=== PATIENT | male | born 1945 | race Hispanic/Latino ===

== ENCOUNTER → 2020-01-19 | Outpatient (CLI) | payer OTHER, MEDICARE | END | disposition home or self-care (01) | LOC: RAH 07:50 | PROVIDERS: ATTEND Surgery | DX: K74.60 Unspecified cirrhosis of liver (principal) | CPT/HCPCS: 76705 ==

== ENCOUNTER 2021-03-29 18:49 | Observation (INO) | payer OTHER, MEDICARE ==
[~2021-03-29] VITALS: Ht 162.6 cm; Wt 44.9 kg
[~2021-03-29 18:49] MED LIST: DEXA6TAB7 PO; LEVO100T4 PO; METO10TA41 PO; MIDO5TAB4 PO; ONDA4TAB4 SL; PANT40TA55 PO
[2021-03-29 19:10] VITALS: BP 95/52
[2021-03-29 20:39] LABS: EOSINOPHILS % (AUTO) 0.3 % (0.0-8.0); LYMPHOCYTES % (AUTO) 24.8 % (21.0-51.0); MEAN CORPUSCULAR VOLUME 83.3 fL (79-99); MONOCYTES % (AUTO) 13.1 % (3.0-13.0); NEUTROPHILS % (AUTO) 61.2 % (40.0-77.0); PLATELET COUNT (AUTO) 211 K/uL (130-400); RED BLOOD CELL COUNT(AUTO) 1.92 MIL/uL (4.50-6.20); RED CELL DISTRIBUTION WIDTH 19.8 % (11.0-15.5); WHITE BLOOD COUNT (AUTO) 3.5 K/uL (4.8-10.8)
[2021-03-29 20:54] LABS: CREATININE 0.8 mg/dL (0.5-1.5); INR 1.05 (0.85-1.15); POTASSIUM 3.8 mmol/L (3.5-5.1); PROTHROMBIN TIME 11.4 SEC (9.6-11.6)
[2021-03-29 20:59] LABS: ALBUMIN 2.5 g/dL (3.5-5.0); BILIRUBIN,TOTAL 0.3 mg/dL (0.2-1.0); TOTAL PROTEIN, SERUM 4.7 g/dL (6.0-8.3)
[2021-03-29 21:22] LABS: APPEARANCE,URINE Clear (CLEAR); BILIRUBIN,URINE Negative (NEGATIVE); COLOR,URINE Yellow (YELLOW); GLUCOSE, URINE (UA) Negative (NEGATIVE); KETONES,URINE Negative (NEGATIVE); LEUKOCYTE ESTERASE ,URINE Negative (NEGATIVE); NITRATE,URINE Negative (NEGATIVE); OCCULT BLOOD,URINE Negative (NEGATIVE); PH,URINE 7.5 (5.0-8.0); PROTEIN,URINE Negative (NEGATIVE)
[2021-03-29] MEDS ORDERED: PANTOPRAZOLE 40 MG/VIAL IVP STA (22:05)
[2021-03-29] MEDS ORDERED: DEXTROSE 50%-WATER 50 ML DISP.SYRIN IV PRN (22:30)
[2021-03-29] MEDS ORDERED: GLUCAGON 1MG KIT 1 MG ML IM PRN (22:30)
[2021-03-29] MEDS ORDERED: LABETALOL 20MG VIAL IV PRN (22:30)
[2021-03-29 22:40] VITALS: BP 82/50
[2021-03-30] MEDS ORDERED: NITROGLYCERIN 0.4 MG SL TAB SL PRN (01:30)
[2021-03-30] MEDS ORDERED: ACETAMINOPHEN 325 MG TAB PO PRN ×2 (01:30)
[2021-03-30] MEDS ORDERED: MAG/ALUM/SIMETH 30 ML UDCUP PO PRN (01:30)
[2021-03-30] MEDS ORDERED: 0.9%NACL 1000ML 1,000 ML IV SCH (01:30)
[2021-03-30] MEDS ORDERED: ZOLPIDEM TARTRATE 5 MG TAB PO ONE (01:30)
[2021-03-30] MEDS ORDERED: GUAIFENESIN-DM 200/20 MG 10 ML PO PRN (01:30)
[2021-03-30] MEDS ORDERED: ONDANSETRON 4MG INJ IV PRN (01:30)
[2021-03-30] MEDS ORDERED: MORPHINE 4 MG SYG IV PRN (01:30)
[2021-03-30] MEDS ORDERED: LACTULOSE 20 GM/30 ML UDCUP PO PRN (01:30)
[2021-03-30 02:15] VITALS: BP 86/53
[2021-03-30] MEDS ORDERED: PANT40TA54 PO (03:13)
[2021-03-30] MEDS ORDERED: MIDO5TAB4 PO (03:13)
[2021-03-30] MEDS ORDERED: METO5TAB2 PO (03:13)
[2021-03-30] MEDS ORDERED: SUCR1ORA15 PO (03:13)
[2021-03-30] MEDS ORDERED: LEVO100C4 PO (03:13)
[2021-03-30 05:11] VITALS: BP 105/63
[2021-03-30] MEDS: INSULIN HUMULIN R 100 UNIT/ML 3ML SQ SCH ×3 (05:46→11:46)
[2021-03-30 06:22] VITALS: BP 102/56
[2021-03-30] MEDS ORDERED: LEVOTHYROXINE 50 MCG TABLET PO SCH (06:30)
[2021-03-30 07:28] LABS: EOSINOPHILS % (AUTO) 0.4 % (0.0-8.0); HEMATOCRIT 25.9 % (42-54); LYMPHOCYTES % (AUTO) 25.1 % (21.0-51.0); MEAN CORPUSCULAR HEMOGLOBIN 26.4 pg (27.0-33.0); MEAN CORPUSCULAR VOLUME 82.5 fL (79-99); MONOCYTES % (AUTO) 14.5 % (3.0-13.0); NEUTROPHILS % (AUTO) 59.1 % (40.0-77.0); PLATELET COUNT (AUTO) 181 K/uL (130-400); RED BLOOD CELL COUNT(AUTO) 3.14 MIL/uL (4.50-6.20); RED CELL DISTRIBUTION WIDTH 16.8 % (11.0-15.5); WHITE BLOOD COUNT (AUTO) 2.4 K/uL (4.8-10.8)
[2021-03-30 07:55] LABS: B-TYPE NATRIURETIC PEPTIDE 43 pg/mL (0-100)
[2021-03-30 08:00] LABS: CREATININE 0.7 mg/dL (0.5-1.5); MAGNESIUM 1.9 mg/dL (1.80-2.40); POTASSIUM 3.6 mmol/L (3.5-5.1); THYROID STIMULATING HORMONE 2.22 uIU/mL (0.36-3.74)
[2021-03-30 08:14] VITALS: BP 104/65
[2021-03-30 09:00] LABS: BASOPHILS % (MANUAL) 4 % (0-2); LYMPHOCYTES % (MANUAL) 40 % (22-44); MONOCYTES % (MANUAL) 20 % (2-9); SEGMENTED NEUTROPHILS % 36 % (40-70)
[2021-03-30] MEDS ORDERED: MIDODRINE HCL 5 MG TABLET PO SCH (09:00)
[2021-03-30] MEDS ORDERED: NON-FORMULARY MEDICATION 1 EACH (Levothyroxine Sodium (Levothyroxine) 100 MCG) PO SCH (09:00)
[2021-03-30] MEDS ORDERED: SUCRALFATE 1 GM TABLET PO SCH (09:00)
[2021-03-30] MEDS ORDERED: FERROUS SULFATE 325 MG TABLET.DR PO SCH (09:00)
[2021-03-30 09:01] LABS: PLATELET MORPHOLOGY COMMENT ADEQUATE
[2021-03-30 12:32] LABS: BASOPHILS % (AUTO) 0.4 % (0.0-5.0); EOSINOPHILS % (AUTO) 0.4 % (0.0-8.0); HEMATOCRIT 26.5 % (42-54); LYMPHOCYTES % (AUTO) 31.2 % (21.0-51.0); MEAN CORPUSCULAR HEMOGLOBIN 26.9 pg (27.0-33.0); MEAN CORPUSCULAR HGB CONC 32.8 g/dL (32.0-36.0); MEAN CORPUSCULAR VOLUME 81.8 fL (79-99); MONOCYTES % (AUTO) 14.3 % (3.0-13.0); PLATELET COUNT (AUTO) 188 K/uL (130-400); RED BLOOD CELL COUNT(AUTO) 3.24 MIL/uL (4.50-6.20); RED CELL DISTRIBUTION WIDTH 16.7 % (11.0-15.5); WHITE BLOOD COUNT (AUTO) 2.4 K/uL (4.8-10.8)
[2021-03-30 14:21] VITALS: BP 126/63
[2021-03-31] MEDS ORDERED: LEVOTHYROXINE 100 MCG TABLET PO SCH (06:30)
== END 2021-03-30 14:49 | disposition home or self-care (01) ==
LOC: EDH 18:49 → EDHIP 22:03
PROVIDERS: ADMIT Internal Medicine Pulmonary Disease; ATTEND Internal Medicine Pulmonary Disease
DX: K92.2 Gastrointestinal hemorrhage, unspecified (principal); D64.9 Anemia, unspecified; C85.90 Non-Hodgkin lymphoma, unspecified, unspecified site; E03.9 Hypothyroidism, unspecified; G62.9 Polyneuropathy, unspecified; R53.81 Other malaise; I95.9 Hypotension, unspecified; Z66 Do not resuscitate; Z85.850 Personal history of malignant neoplasm of thyroid; Z92.21 Personal history of antineoplastic chemotherapy
CPT/HCPCS: 36415 ×2; 36430 ×2; 71045; 80048; 80053; 81003; 82270; 82948 ×3; 83735; 83880; 84443; 84484; 85025 ×3; 85610; 86850; 86900; 86901; 86923 ×2; 93005; 96361; 96374; 99285; C9113; G0378 ×11; P9016 ×2; J7030

== ENCOUNTER 2021-07-16 05:55 | Day surgery (SDC) | payer OTHER, MEDICARE ==
[~2021-07-16] VITALS: Ht 167.6 cm; Wt 49.0 kg
[~2021-07-16 05:55] MED LIST changes: -DEXA6TAB7 PO; +FOLI1 PO; +LEVO100C4 PO; +METO5 PO; -ONDA4TAB4 SL; +PANT40TA54 PO; +POLY119P3 PO; +SUCR1ORA15 PO
[2021-07-16] MEDS ORDERED: 0.9%NACL 1000ML 1,000 ML IV ONE (06:22)
[2021-07-16 06:40] VITALS: BP 100/42
[2021-07-16] MEDS ORDERED: FAMO20TA8 PO (06:58)
[2021-07-16] MEDS ORDERED: PROPOFOL 10 MG/ML 20ML VIAL IV ONE (07:37)
[2021-07-16 08:00] VITALS: BP 66/29
[2021-07-16 08:05] VITALS: BP 74/39
[2021-07-16 08:10] VITALS: BP 81/38
[2021-07-16 08:26] VITALS: BP 82/49
== END 2021-07-16 08:32 | disposition home or self-care (01) ==
LOC: DAH 05:55 → ENDO 05:55
PROVIDERS: ATTEND Internal Medicine
DX: R13.10 Dysphagia, unspecified (principal); K22.2 Esophageal obstruction; D64.9 Anemia, unspecified; K29.51 Unspecified chronic gastritis with bleeding; Z86.010 Personal history of colon polyps; E03.9 Hypothyroidism, unspecified; K25.4 Chronic or unspecified gastric ulcer with hemorrhage; R63.4 Abnormal weight loss; K31.1 Adult hypertrophic pyloric stenosis; K59.00 Constipation, unspecified; C85.10 Unspecified B-cell lymphoma, unspecified site; Z79.899 Other long term (current) drug therapy; Z20.822 Contact with and (suspected) exposure to COVID-19
CPT/HCPCS: 43249; 87635; 93005; A4215 ×2; A4221; A4222; A4223; A4600; A4606; A4620; A4663; C9803; J2704; J7030

== ENCOUNTER → 2022-06-11 | Outpatient (CLI) | payer OTHER, MEDICARE ==
[~2022-06-11] MED LIST changes: +FAMO20TA8 PO; -LEVO100T4 PO; -PANT40TA55 PO
== END | disposition home or self-care (01) ==
LOC: RAH 08:06
PROVIDERS: ATTEND Internal Medicine Gastroenterology
DX: R10.13 Epigastric pain (principal)
CPT/HCPCS: 74240; 76700

== ENCOUNTER 2022-07-16 18:01 | Emergency (ER) | payer OTHER, MEDICARE ==
[~2022-07-16] VITALS: Ht 165.1 cm; Wt 56.7 kg
[2022-07-16 18:32] LABS: BASOPHILS % (AUTO) 0.2 % (0.0-5.0); EOSINOPHILS % (AUTO) 0.1 % (0.0-8.0); HEMATOCRIT 34.5 % (42-54); LYMPHOCYTES % (AUTO) 10.2 % (21.0-51.0); MEAN CORPUSCULAR HEMOGLOBIN 29.8 pg (27.0-33.0); MEAN CORPUSCULAR HGB CONC 33.9 g/dL (32.0-36.0); MEAN CORPUSCULAR VOLUME 87.8 fL (79-99); MONOCYTES % (AUTO) 7.6 % (3.0-13.0); NEUTROPHILS % (AUTO) 81.7 % (40.0-77.0); PLATELET COUNT (AUTO) 185 K/uL (130-400); RED BLOOD CELL COUNT(AUTO) 3.93 MIL/uL (4.50-6.20); RED CELL DISTRIBUTION WIDTH 14.5 % (11.0-15.5)
[2022-07-16] MEDS ORDERED: PANTOPRAZOLE 40 MG/VIAL IVP STA (18:38)
[2022-07-16 18:40] LABS: CREATININE 1.3 mg/dL (0.5-1.5)
[2022-07-16 18:49] LABS: ALBUMIN 4.1 g/dL (3.5-5.0); TOTAL PROTEIN, SERUM 7.9 g/dL (6.0-8.3)
[2022-07-16 21:27] LABS: OCCULT BLOOD,GASTRIC FLUID NEGATIVE (NEGATIVE)
[2022-07-16] MEDS ORDERED: OMEP40CA21 PO (21:32)
[2022-07-16 22:00] VITALS: BP 116/63
== END 2022-07-16 22:13 | disposition home or self-care (01) ==
LOC: EDH 18:01
DX: K92.0 Hematemesis (principal); K21.9 Gastro-esophageal reflux disease without esophagitis; K30 Functional dyspepsia; I10 Essential (primary) hypertension; E05.90 Thyrotoxicosis, unspecified without thyrotoxic crisis or storm; Z79.899 Other long term (current) drug therapy
CPT/HCPCS: 99285; 74176; 96374; 71045; 84484; 80053; 83690; 85025; 82272; 82271; 36415; 93005; C9113; 82270

== ENCOUNTER 2023-05-28 09:18 | Emergency (ER) | payer OTHER, MEDICARE ==
[~2023-05-28] VITALS: Ht 157.5 cm; Wt 63.0 kg
[~2023-05-28 09:18] MED LIST changes: +OMEP40CA21 PO
[2023-05-28 09:54] LABS: BASOPHILS # (AUTO) 0.04 K/uL (0.00-0.20); BASOPHILS % (AUTO) 0.4 % (0.0-5.0); EOSINOPHILS # (AUTO) 0.04 K/uL (0.00-0.70); EOSINOPHILS % (AUTO) 0.4 % (0.0-8.0); HEMATOCRIT 38.8 % (42-54); IMMATURE GRANULOCYTE ABSOLUTE 0.11 K/uL (0-1); LYMPHOCYTES # (AUTO) 2.2 K/uL (1.0-4.8); LYMPHOCYTES % (AUTO) 20.7 % (21.0-51.0); MEAN CORPUSCULAR HEMOGLOBIN 30.4 pg (27.0-33.0); MEAN CORPUSCULAR HGB CONC 34.3 g/dL (32.0-36.0); MEAN CORPUSCULAR VOLUME 88.6 fL (79-99); MONOCYTES # (AUTO) 0.8 K/uL (0.1-1.0); MONOCYTES % (AUTO) 7.6 % (3.0-13.0); NEUTROPHILS # (AUTO) 7.3 K/uL (1.8-7.7); NEUTROPHILS % (AUTO) 69.8 % (40.0-77.0); PLATELET COUNT (AUTO) 305 K/uL (130-400); RED BLOOD CELL COUNT(AUTO) 4.38 MIL/uL (4.50-6.20); RED CELL DISTRIBUTION WIDTH 14.4 % (11.0-15.5); WHITE BLOOD COUNT (AUTO) 10.5 K/uL (4.8-10.8)
[2023-05-28 10:14] LABS: CREATININE 1.6 mg/dL (0.5-1.5); POTASSIUM 3.8 mmol/L (3.5-5.1)
[2023-05-28 10:21] LABS: SARS-CoV-2, RNA, NAAT NEGATIVE SARS CoV-2 (NEGATIVE)
[2023-05-28 10:31] LABS: INFLUENZA TYPE A Negative For Type A (NEGATIVE); INFLUENZA TYPE B Negative For Type B (NEGATIVE)
[2023-05-28] MEDS ORDERED: MORPHINE 4 MG SYG IM ONE (11:00)
[2023-05-28] MEDS ORDERED: ONDANSETRON 4MG INJ IVP ONE (11:00)
[2023-05-28 12:24] VITALS: BP 104/71; PULSE 90; RESP 18; O2SAT 98
[2023-05-28] MEDS ORDERED: LIDO700A30 TP (12:26)
== END 2023-05-28 12:41 | disposition home or self-care (01) ==
LOC: EDH 09:18
DX: B02.29 Other postherpetic nervous system involvement (principal); I10 Essential (primary) hypertension; E03.9 Hypothyroidism, unspecified; Z20.822 Contact with and (suspected) exposure to COVID-19; Z79.899 Other long term (current) drug therapy; Z85.850 Personal history of malignant neoplasm of thyroid
CPT/HCPCS: 99285; 96374; 70450; 87635; 80048; 85025; 87804 ×2; 36415; 93005; 96372; C9803; J2405; J2270

== ENCOUNTER 2023-08-13 10:20 | Emergency (ER) | payer OTHER, MEDICARE ==
[~2023-08-13] VITALS: Ht 165.1 cm; Wt 59.0 kg
[~2023-08-13 10:20] MED LIST changes: +AMOX1TAB16 PO; +IRON 27 MG PO; -LEVO100C4 PO; +LEVO112C4 PO; -METO10TA41 PO; -MIDO5TAB4 PO; +NORT10CA2 PO; -PANT40TA54 PO; -POLY119P3 PO; -SUCR1ORA15 PO
[2023-08-13 11:47] LABS: BASOPHILS # (AUTO) 0.05 K/uL (0.00-0.20); BASOPHILS % (AUTO) 0.5 % (0.0-5.0); EOSINOPHILS # (AUTO) 0.09 K/uL (0.00-0.70); EOSINOPHILS % (AUTO) 0.8 % (0.0-8.0); HEMATOCRIT 30.6 % (42-54); IMMATURE GRANULOCYTE ABSOLUTE 0.05 K/uL (0-1); LYMPHOCYTES # (AUTO) 1.6 K/uL (1.0-4.8); LYMPHOCYTES % (AUTO) 14.3 % (21.0-51.0); MEAN CORPUSCULAR HEMOGLOBIN 29.8 pg (27.0-33.0); MEAN CORPUSCULAR HGB CONC 31.7 g/dL (32.0-36.0); MEAN CORPUSCULAR VOLUME 93.9 fL (79-99); MONOCYTES # (AUTO) 0.9 K/uL (0.1-1.0); MONOCYTES % (AUTO) 8.3 % (3.0-13.0); NEUTROPHILS # (AUTO) 8.3 K/uL (1.8-7.7); NEUTROPHILS % (AUTO) 75.6 % (40.0-77.0); PLATELET COUNT (AUTO) 596 K/uL (130-400); RED BLOOD CELL COUNT(AUTO) 3.26 MIL/uL (4.50-6.20); RED CELL DISTRIBUTION WIDTH 14.5 % (11.0-15.5)
[2023-08-13 12:01] LABS: CREATININE 1.1 mg/dL (0.5-1.5); POTASSIUM 4.3 mmol/L (3.5-5.1)
[2023-08-13 12:08] LABS: BILIRUBIN,TOTAL 0.3 mg/dL (0.2-1.0); TOTAL PROTEIN, SERUM 7.8 g/dL (6.0-8.3)
[2023-08-13] MEDS ORDERED: ACETAMINOPHEN 500 MG TABLET PO ONE (13:30)
[2023-08-13] MEDS ORDERED: AMOX-427 PO (14:42)
[2023-08-13 14:55] VITALS: BP 128/68; PULSE 89; RESP 18; O2SAT 96
== END 2023-08-13 15:21 | disposition home or self-care (01) ==
LOC: EDH 10:20
DX: S31.109A Unspecified open wound of abdominal wall, unspecified quadrant without penetration into peritoneal cavity, initial encounter (principal); E03.9 Hypothyroidism, unspecified; Z79.899 Other long term (current) drug therapy; Z90.49 Acquired absence of other specified parts of digestive tract; X58.XXXA Exposure to other specified factors, initial encounter; Y93.89 Activity, other specified; Y92.89 Other specified places as the place of occurrence of the external cause; Y99.8 Other external cause status
CPT/HCPCS: 36415; 76705; 80053; 83605; 85025; 87040

== ENCOUNTER → 2024-09-06 | Outpatient (CLI) | payer OTHER, MEDICARE ==
[~2024-09-06] MED LIST changes: +AMOX-427 PO; +IOHEXOL 350 MG/ML 100ML INFUS..BTL IV ONE
--- NOTE | 2024-09-06 12:37 | HMCIMG ---
CT ABDOMEN/PELVIS W/CONTRAST HISTORY: Periumbilical swelling COMPARISON: 07/31/2023 TECHNIQUE: Multiple sequential axial images of the abdomen and pelvis were obtained from the dome of the diaphragm through symphysis pubis. Patient was given 100 cc of Omnipaque through intravenous route. Oral contrast was given. FINDINGS: No pleural effusion is seen bilaterally. There is no evidence of parenchymal disease or pulmonary nodule of the visualized lower lungs. Degenerative changes of the thoracolumbar spine are present. The heart is not enlarged. Postcholecystectomy changes are seen. There is small periumbilical hernia with bowel content. Postcholecystectomy changes are seen. Mild small bowel dilatation is seen. The liver, spleen, adrenal glands and pancreas are unremarkable. There is no evidence of hydronephrosis bilaterally. No evidence of renal stone is seen. Fecal material is seen in the colon. There are normal size retroperitoneal and mesenteric lymph nodes. No ascites is seen. Atherosclerotic changes are present. Pelvic sidewalls are symmetric bilaterally. Bladder is well distended without wall thickening. IMPRESSION: 1. Small periumbilical hernia with bowel content. Possibility of incarcerated hernia cannot be excluded. No bowel obstruction is seen. No ascites is seen. CT was performed with one or more following dose reduction techniques: automated exposure control, adjustment of the mA and kv according to patient's size, or use of a iterative reconstruction technique.
== END | disposition home or self-care (01) ==
LOC: RAH 08:08
PROVIDERS: ATTEND Internal Medicine Gastroenterology
DX: K42.9 Umbilical hernia without obstruction or gangrene (principal); R19.05 Periumbilic swelling, mass or lump; M47.815 Spondylosis without myelopathy or radiculopathy, thoracolumbar region; Z90.49 Acquired absence of other specified parts of digestive tract
CPT/HCPCS: 74177; Q9967

== ENCOUNTER 2025-07-07 13:01 | Emergency (ER) | payer OTHER, MEDICARE ==
[~2025-07-07] VITALS: Ht 162.6 cm; Wt 64.9 kg
[2025-07-07 13:39] LABS: IMMATURE GRANULOCYTE ABSOLUTE 0.06 K/uL (0-1); NUCLEATED RED BLOOD CELLS 0.0 % (0.0-0.19); PLATELET COUNT (AUTO) 207 K/uL (130-400); RED BLOOD CELL COUNT(AUTO) 4.32 MIL/uL (4.50-6.20); RED CELL DISTRIBUTION WIDTH 14.2 % (11.0-15.5); WHITE BLOOD COUNT (AUTO) 13.4 K/uL (4.8-10.8)
[2025-07-07 13:44] LABS: CREATININE 1.4 mg/dL (0.5-1.3); GLOMERULAR FILTR. RATE CALC 51.0 mL/min (>90); GLUCOSE,RANDOM 131.0 mg/dL (70-105); SODIUM SERUM 138.0 mmol/L (136-145); UREA NITROGEN, BLOOD 16.0 mg/dL (7-18)
[2025-07-07 13:48] LABS: ASPARTATE AMINOTRANSFERASE 19.0 U/L (10-37); TOTAL PROTEIN, SERUM 7.4 g/dL (6.0-8.3)
--- NOTE | 2025-07-07 13:52 | EKG ---
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
[2025-07-07] MEDS: 0.9%NACL 1000ML 1,000 ML IV ONE (14:35)
--- NOTE | 2025-07-07 14:53 | ERN ---
General Chief Complaint: Abdominal Pain Stated Complaint: RUQ ABDOMINAL PAIN. NAUSEA Time Seen by MD: 13:04 Source: patient History of Present Illness Initial Comments PATIENT IS A AN 80-YEAR-OLD GENTLEMAN COMING IN COMPLAINING OF ABDOMINAL PAIN. PER PATIENT HE HAS BEEN HAVING ABDOMINAL PAIN FOR TWO DAYS. HE STATES HE DOES NOT HAS A GALLBLADDER ANYMORE BUT HE HAS A EPIGASTRIC DISCOMFORT. Allergies: Coded Allergies: No Known Allergies (Verified Allergy, Unknown, 05/27/20) Home Meds Active Scripts Amoxicillin/Potassium Clav (Augmentin Xr 1,000-62.5 Tab) 1,000 Mg-62.5 Mg Tab.er.12h, 1 EACH PO BID for 5 Days, #10 TAB 0 Refills Prov:ROSA MURGUIA Sr., MD 08/13/23 Amoxicillin/Potassium Clav (Amox Tr-K Clv 875-125 mg Tab) 875 Mg-125 Mg Tablet, 1 EACH PO BID, #15 TAB 0 Refills Prov:MEENU CONTRERAS CNP 08/06/23 Omeprazole (Omeprazole) 40 Mg Capsule.dr, 40 MG PO DAILY, #30 CAP Prov:AMTT MARCUS MD 07/16/22 Reported Medications [iron 27mg daily] No Conflict Check, 1 TAB PO DAILY 08/01/23 Folic Acid (Folvite) 1 Mg Tab, 1 MG PO DAILY, TAB 08/01/23 Nortriptyline HCl (Nortriptyline HCl) 10 Mg Capsule, 20 MG PO HS, CAP 08/01/23 Nortriptyline HCl (Nortriptyline HCl) 10 Mg Capsule, 10 MG PO AM, CAP 08/01/23 Levothyroxine Sodium (Levothyroxine) 112 Mcg Capsule, 112 MCG PO ACBKFST, CAP 08/01/23 Famotidine (Famotidine) 20 Mg Tablet, 20 MG PO HS, TAB 07/16/21 Metoclopramide HCl (Reglan) 5 Mg Tab, 5 MG PO BID, TAB 07/15/21 Past Medical History Past Medical History: Cancer, GERD, Hypothyroid Medical History Other: LYMPHOMA, GASTRITIS Past Surgical History: Cholecystectomy Surgical History Other: R FOREARM SURGERY Social History Social History: Negative ROS Dictation CONSTITUTIONAL: NO CHILLS, NO FEVER, NO WEAKNESS, NO DIAPHORESIS, NO MALAISE. HEAD/FACE: NO SIGNS OF TRAUMA. EENT: NO EYE PAIN, NO BLURRED VISION, NO TEARING, NO DOUBLE VISION, NO EAR PAIN, NO EAR DISCHARGE, NO NOSE PAIN, NO NASAL CONGESTION, NO THROAT PAIN, NO THROAT SWELLING, NO MOUTH PAIN. RESPIRATORY: NO COUGH, NO ORTHOPNEA, NO SOB, NO STRIDOR, NO WHEEZING. CARDIOVASCULAR: NO CHEST PAIN, NO EDEMA, NO PALPITATIONS, NO SYNCOPE. GASTROINTESTINAL/ABDOMINAL: ABDOMINAL PAIN, NO CONSTIPATION, NO DIARRHEA, NAUSEA, NO VOMITING. GENITOURINARY: NO ABNORMAL DISCHARGE, NO DYSURIA, NO FREQUENT URINATION, NO HEMATURIA. NO COMPLAINTS OF PAIN IN THE GENITALS. MUSCULOSKELETAL: NO BACK PAIN, NO GOUT, NO JOINT PAIN, NO JOINT SWELLING, NO MUSCLE PAIN, NO MUSCLE STIFFNESS, NO NECK PAIN. INTEGUMENTARY: NO CHANGE IN COLOR, NO CHANGE IN HAIR/NAILS, NO DRYNESS, NO LESION, NO LUMPS, NO RASH. NEUROLOGICAL/PSYCH: NO ANXIETY, NOT DEPRESSED, NO EMOTIONAL PROBLEM, NO HEADACHE, NO NUMBNESS, NO PRE-EXISTING DEFICIT, NO HISTORY OF SEIZURES, NO TREMORS, NO WEAKNESS. HEMATOLOGIC/LYMPHATIC: NOT ANEMIC, NO HISTORY OF BLOOD CLOTS, NO APPARENT BLEEDING, NO BRUISING, GLANDS NOT SWOLLEN. ALL SYSTEMS NEGATIVE, EXCEPT NOTED. Physical Exam Physical Exam Dictation VITAL SIGNS: REVIEWED. GENERAL APPEARANCE: ALERT, ORIENTED X3, NO ACUTE DISTRESS, OBESE. HEAD AND FACE: NON-TRAUMATIC. EYES: PERRL, PINK CONJUNCTIVAS, EYELID NO TRAUMA, ANTERIOR CHAMBER CLEAR. EARS: PINNAS INTACT AND NO SIGNS OF TRAUMA OR ERYTHEMA. EAR CANALS CLEAR AND NO DISCHARGE. TMS NO ERYTHEMA. NOSE: NO DISCHARGE, NO BLEEDING. OROPHARYNX: MOUTH NORMAL, TEETH NO CARIES, TONGUE PINK. PHARYNX CLEAR, NO ERYTHEMA. TONSILS NO EXUDATES, NO ABSCESSES NOTED. MUCOUS MEMBRANE MOIST. NECK: SUPPLE, NON-TENDER, NO THYROMEGALY, NO MASSES, NO JVD, NO BRUITS. BREAST: DEFERRED. CHEST: NO TENDERNESS, NO CREPITUS, NO PARADOXICAL MOVEMENT, NO RETRACTIONS. LUNGS: CLEAR, WELL-VENTILATED, SYMMETRIC, NO RALES, NO WHEEZING, NO RHONCHI, NO STRIDOR, GOOD BREATH SOUNDS BILATERALLY. HEART: REGULAR RATE, REGULAR RHYTHM, NO MURMUR, NO GALLOPS. VASCULAR: NO PERIPHERAL EDEMA. ABDOMEN: SOFT, POSITIVE BOWEL SOUNDS, NONDISTENDED, NO GUARDING, RUQ TENDER, NO REBOUND, NO MASSES NO HEPATOMEGALY, NO SPLENOMEGALY, NO PRADHAN'S SIGN, NO HERNIAS. RECTAL: DEFERRED. GENITAL: DEFERRED. NEUROLOGICAL: NORMAL SPEECH, GROSS MOTOR FUNCTION INTACT, GROSS SENSORY FUNCTION INTACT. MUSCULOSKELETAL: NECK NONTENDER, FULL RANGE OF MOTION, BACK NONTENDER, FULL RANGE OF MOTION. EXTREMITIES: NONTENDER, FULL RANGE OF MOTION. SKIN: COLOR PINK, DRY, NO TURGOR, NO RASH, NO LACERATIONS, NO ABRASIONS, NO CONTUSIONS. LYMPHATICS: DEFERRED. Results Laboratory and Microbiology Lab and Micro Result Laboratory Tests Test 07/07/25 13:26 07/07/25 15:26 White Blood Count 13.4 K/uL (4.8-10.8) H Red Blood Count 4.32 MIL/uL (4.50-6.20) L Hemoglobin 12.7 g/dL (14.0-18.0) L Hematocrit 37.9 % (42-54) L Mean Corpuscular Volume 87.7 fL (79-99) Mean Corpuscular Hemoglobin 29.4 pg (27.0-33.0) Mean Corpuscular Hemoglobin Concent 33.5 g/dL (32.0-36.0) Red Cell Distribution Width 14.2 % (11.0-15.5) Platelet Count 207 K/uL (130-400) Mean Platelet Volume 9.0 fL (7.5-10.5) Immature Granulocyte % (Auto) 0.4 % (0-1) Neutrophils (%) (Auto) 87.2 % (40.0-77.0) H Lymphocytes (%) (Auto) 7.5 % (21.0-51.0) L Monocytes (%) (Auto) 4.7 % (3.0-13.0) Eosinophils (%) (Auto) 0.1 % (0.0-8.0) Basophils (%) (Auto) 0.1 % (0.0-5.0) Neutrophils # (Auto) 11.6 K/uL (1.8-7.7) H Lymphocytes # (Auto) 1.0 K/uL (1.0-4.8) Monocytes # (Auto) 0.6 K/uL (0.1-1.0) Eosinophils # (Auto) 0.01 K/uL (0.00-0.70) Basophils # (Auto) 0.02 K/uL (0.00-0.20) Absolute Immature Granulocyte (auto 0.06 K/uL (0-1) Nucleated Red Blood Cells 0.0 % (0.0-0.19) White Cell Morphology Comment See comments Sodium Level 138 mmol/L (136-145) Potassium Level 4.0 mmol/L (3.5-5.1) Chloride Level 103 mmol/L (101-111) Carbon Dioxide Level 24 mmol/L (21-32) Blood Urea Nitrogen 16 mg/dL (7-18) Creatinine 1.4 mg/dL (0.5-1.3) H Glomerular Filtration Rate Calc 51 mL/min (>90) Random Glucose 131 mg/dL (70-105) H Total Calcium 8.9 mg/dL (8.5-10.1) Total Bilirubin 0.6 mg/dL (0.2-1.0) Aspartate Amino Transf (AST/SGOT) 19 U/L (10-37) Alanine Aminotransferase (ALT/SGPT) 22 U/L (12-78) Alkaline Phosphatase 107 U/L (50-136) Troponin I High Sensitivity 8 ng/L (4-75) Total Protein 7.4 g/dL (6.0-8.3) Albumin 3.7 g/dL (3.5-5.0) Lipase 24 U/L (16-77) Urine Color LIGHT-YELLOW (YELLOW) Urine Appearance CLEAR (CLEAR) Urine pH 8.0 (5.0-8.0) Urine Specific [place] 1.019 (1.001-1.031) Urine Protein NEGATIVE mg/dL (NEGATIVE) Urine Glucose (UA) NEGATIVE mg/dL (NEGATIVE) Urine Ketones NEGATIVE mg/dL (NEGATIVE) Urine Occult Blood SMALL (NEGATIVE) H Urine Nitrate NEGATIVE (NEGATIVE) Urine Bilirubin NEGATIVE mg/dL (NEGATIVE) Urine Urobilinogen 0.2 mg/dL (0.2-1.0) Urine Leukocyte Esterase NEGATIVE Jose Ramon/uL Urine RBC 51-100 /HPF (0-1) H Urine WBC 0-1 /HPF (0-1) Urine Bacteria None /HPF (None Seen) Labs Reviewed?: Yes EKG/XRAY/US/CT/MRI CT Scan Comment [facility] [address] [place] [id number] IMAGING REPORT Signed PATIENT: LISA AJ MR#: [id number] : 1945 SEX: M AGE: 80 LOCATION: [facility] ORDER 04 STATUS: [facility] ER REPORT#: [id number] SERVICE [id number] REASON: ABD PAIN ORDERING PHYSICIAN: CHERIE ACOSTA MD PROCEDURE: ABD PEL WO - CT ABDOMEN/PELVIS W/O CONTRAST EXAM: CT Abdomen and Pelvis Without IV contrast CLINICAL HISTORY: ABD PAIN TECHNIQUE: Axial computed tomography images of the abdomen and pelvis without intravenous contrast. CONTRAST: No IV contrast. COMPARISON: None provided. FINDINGS: LUNG BASES: The lung bases appear clear. No pleural effusions are seen. LIVER: Unremarkable. GALLBLADDER AND BILE DUCTS: Cholecystectomy. PANCREAS: Unremarkable. SPLEEN: Unremarkable. ADRENAL GLANDS: Unremarkable. KIDNEYS, URETERS, AND BLADDER: The kidneys appear within normal limits. There is no hydronephrosis or hydroureter. No urinary calculi are seen. STOMACH AND BOWEL: Colonic diverticulosis. Mild distention of the stomach. Mild thickening of the distal stomach wall, 09/17. Findings could be due to gastritis, however underlying neoplasm in this area not excluded. Referral to gastroenterology is recommended. Small ventral wall hernia containing fat and nonobstructed small bowel. APPENDIX: No evidence of acute appendicitis on CT examination. PERITONEUM: No free fluid. No free air. LYMPH NODES: No lymphadenopathy is evident. REPRODUCTIVE: Unremarkable as visualized. VASCULATURE: No evidence of abdominal aortic aneurysm. BONES: Moderate degenerative change of the spine. IMPRESSION: Mild gastric distention with thickening of distal stomach. Findings could be due to gastritis versus underlying neoplasm. Referral to gastroenterology recommended. /[place] DICTATED BY: MUKUL WHARTON MD DATE: 07/07/251752 ELECTRONICALLY SIGNED BY: MUKUL WHARTON MD DATE: 07/07/251752 [facility] MDM: DIFFERENTIAL DIAGNOSIS: GASTRITIS, ABDOMINAL NEOPLASM, GASTROENTERITIS, RATIONALE: TESTS CONSIDERED AND ORDERED SECONDARY TO SHARED DECISION MAKING INCLUDE: PREVIOUS OUTSIDE RECORDS REVIEWED: OLD ER VISITS. RISK OF COMPLICATION AND/OR MORBIDITY OR MORTALITY OF PATIENT MANAGEMENT: NONE MEDICATIONS-PER MEDICATION RECONCILIATION NEED FOR HOSPITALIZATION: PATIENT DOES NOT MEET CRITERIA FOR HOSPITALIZATION. NEED FOR EMERGENCY MAJOR/MINOR SURGERY: NO PATIENT IS A AN 80-YEAR-OLD MALE COMING IN COMPLAINING OF ABDOMINAL DISCOMFORT. A CT NEEDED TO BE PERFORMED TO RULE OUT A POSSIBLE GASTROENTERITIS DUE TO INFECTIOUS PROCESS. CT DISCLOSE POSSIBLE GASTRITIS OF THE INTESTINE. PATIENT WILL BE DISCHARGED IN STABLE CONDITION I DID ADVISED HIM APPROPRIATE FOLLOW UP WITH PCP. ED Course Orders Procedure Category Date Status Time Cbc With Differential LAB 07/07/25 Complete 13:14 Comprehensive LAB 07/07/25 Complete Metabolic Panel 13:14 Troponin I High LAB 07/07/25 Complete Sensitivity 13:14 Urinalysis Profile LAB 07/07/25 Complete 13:14 12 Lead Ekg Tracing- EKG 07/07/25 Complete Technical 13:14 0.9%Nacl 1000ml (Ns PHA 07/07/25 Complete 1000ml) 13:30 Ondansetron 4mg Inj PHA 07/07/25 Complete (Zofran 4mg Inj) 13:30 Pantoprazole 40mg Inj PHA 07/07/25 Complete (Protonix 40mg Inj 13:30 Lipase LAB 07/07/25 Complete 13:14 Lidocaine Hcl 2% PHA 07/07/25 Complete Viscous (Lidocaine Hcl 15:00 Mag/Alum/Simeth 30ml PHA 07/07/25 Complete (Maalox Plus 30ml) 15:00 Ct Abdomen/Pelvis W/O CT 07/07/25 Resulted Contrast 16:04 Current Medications Medications (Trade) Dose Ordered Sig/Christal Route PRN Reason Start Time Stop Time Status Last Admin Dose Admin Al Hydroxide/Mg Hydroxide (MAALox PLUS 30ML) 30 ml ONCE ONCE PO 07/07/25 15:00 07/07/25 15:01 DC 07/07/25 15:30 Lidocaine HCl (Lidocaine HCl 2% Viscous) 10 ml ONCE ONCE PO 07/07/25 15:00 07/07/25 15:01 DC 07/07/25 15:30 Ondansetron HCl (zoFRAN 4MG INJ) 4 mg ONCE ONCE IVP 07/07/25 13:30 07/07/25 13:31 DC 07/07/25 14:35 Pantoprazole Sodium (PROTonix 40MG INJ) 40 mg ONCE ONCE IVP 07/07/25 13:30 07/07/25 13:31 DC 07/07/25 14:35 Sodium Chloride 1,000 ml @ 0 mls/hr ONCE ONCE IV 07/07/25 13:30 07/07/25 13:31 DC 07/07/25 14:35 Vital Signs Date Time Temp Pulse Resp B/P (MAP) Pulse Ox O2 Delivery O2 Flow Rate FiO2 07/07/25 14:36 98.8 71 16 131/65 99 Room Air* 0 21 07/07/25 13:02 98.4 76 20 141/74 98 Room Air 0 DX & DISP Disposition: Discharge Departure Impression: Primary Impression: Gastroenteritis Condition: Stable Scripts Metronidazole (Metronidazole) 375 Mg Capsule 1 CAP PO BID for 7 Days, #14 CAP 0 Refills Prov: CHERIE ACOSTA MD 07/07/25 Lactobacillus Acidophilus (Acidophilus Probiotic) 500 Million Cell Capsule 1 CAP PO BID for 7 Days, #14 CAP 0 Refills Prov: CHERIE ACOSTA MD 07/07/25 Additional Instructions: FOLLOW-UP WITH PRIMARY CARE PROVIDER IN 1 TO 2 DAYS. TAKE MEDICATIONS DIRECTED HERE IN THE EMERGENCY ROOM. OKAY TO CONTINUE HOME MEDICATIONS UNLESS OTHERWISE DISCUSSED DURING YOUR VISIT IN THE EMERGENCY ROOM TODAY. RETURN TO YOUR NEAREST EMERGENCY ROOM IF SYMPTOMS WORSEN OR IF THERE IS NO IMPROVEMENT. CALL 911 IF YOU NEED IMMEDIATE ASSISTANCE. TAKE TYLENOL [id number] NEEDED AND IF NO CONTRAINDICATIONS ARE PRESENT. INCREASE ORAL HYDRATION. A WOUND CULTURE OR URINE CULTURE WAS ORDERED HERE IN THE EMERGENCY ROOM DEPARTMENT PLEASE FOLLOW-UP WITH PRIMARY CARE PROVIDER AND ADVISE THEM TO GET REPORTS FROM OUR FACILITY. IF YOU HAD ANY GLADIS WRAP/SPLINTS THAT WERE APPLIED HERE, PLEASE DO NOT REMOVE THEM UNTIL YOU SEE YOUR PRIMARY CARE OR SPECIALTY. REFERRALS: Referrals: CHRISTEN PUENTE MD (PCP) YENIFER BARGER MD Time of Disposition: 17:01 CHERIE ACOSTA MD Jul 07, 2025 14:52
[2025-07-07] MEDS: LIDOCAINE HCL 2% VISCOUS 15 ML UDCUP PO ONE (15:30)
[2025-07-07] MEDS: MAG/ALUM/SIMETH 30 ML UDCUP PO ONE (15:30)
[2025-07-07 15:35] LABS: APPEARANCE,URINE CLEAR (CLEAR); GLUCOSE, URINE (UA) NEGATIVE (NEGATIVE); LEUKOCYTE ESTERASE ,URINE NEGATIVE Leu/uL (NEGATIVE); NITRATE,URINE NEGATIVE (NEGATIVE); OCCULT BLOOD,URINE SMALL (NEGATIVE)
[2025-07-07 15:36] LABS: ADD UA MICROSCOPIC YES
--- NOTE | 2025-07-07 16:54 | HMCIMG ---
EXAM: CT Abdomen and Pelvis Without IV contrast CLINICAL HISTORY: ABD PAIN TECHNIQUE: Axial computed tomography images of the abdomen and pelvis without intravenous contrast. CONTRAST: No IV contrast. COMPARISON: None provided. FINDINGS: LUNG BASES: The lung bases appear clear. No pleural effusions are seen. LIVER: Unremarkable. GALLBLADDER AND BILE DUCTS: Cholecystectomy. PANCREAS: Unremarkable. SPLEEN: Unremarkable. ADRENAL GLANDS: Unremarkable. KIDNEYS, URETERS, AND BLADDER: The kidneys appear within normal limits. There is no hydronephrosis or hydroureter. No urinary calculi are seen. STOMACH AND BOWEL: Colonic diverticulosis. Mild distention of the stomach. Mild thickening of the distal stomach wall, 09/17. Findings could be due to gastritis, however underlying neoplasm in this area not excluded. Referral to gastroenterology is recommended. Small ventral wall hernia containing fat and nonobstructed small bowel. APPENDIX: No evidence of acute appendicitis on CT examination. PERITONEUM: No free fluid. No free air. LYMPH NODES: No lymphadenopathy is evident. REPRODUCTIVE: Unremarkable as visualized. VASCULATURE: No evidence of abdominal aortic aneurysm. BONES: Moderate degenerative change of the spine. IMPRESSION: Mild gastric distention with thickening of distal stomach. Findings could be due to gastritis versus underlying neoplasm. Referral to gastroenterology recommended. /[place]
[2025-07-07 17:03] VITALS: BP 134/64; PULSE 71; RESP 16; TEMP 98.8; O2SAT 99
== END 2025-07-07 17:15 | disposition home or self-care (01) ==
LOC: EDH 13:01
DX: K52.9 Noninfective gastroenteritis and colitis, unspecified (principal); E03.9 Hypothyroidism, unspecified; Z79.899 Other long term (current) drug therapy; Z85.72 Personal history of non-Hodgkin lymphomas; Z90.49 Acquired absence of other specified parts of digestive tract
CPT/HCPCS: 99285; 74176; 96374; 96361; 96375; 84484; 80053; 83690; 85025; 81001; 36415; 93005; J7030; J2405; J2470